=== PATIENT | male | born 1980 | race Caucasian/White ===

== ENCOUNTER 2019-08-29 15:46 | Inpatient (IN) | payer MEDICAID, SELFPAY ==
[~2019-08-29] VITALS: Ht 167.6 cm; Wt 70.7 kg
[~2019-08-29 15:46] MED LIST: NOCURR
[2019-08-29] MEDS ORDERED: INSU100I26 SQ (15:57)
[2019-08-29] MEDS ORDERED: INSU100V SQ (15:57)
[2019-08-29] MEDS ORDERED: IBUP-2071 PO (15:57)
[2019-08-29 16:02] LABS: GLUCOSE,POINT OF CARE 413 MG/DL (70-110)
[2019-08-29] MEDS ORDERED: 0.9% SODIUM CHLORIDE 10 ML SYRINGE IVP PRN ×2 (16:30→21:15)
[2019-08-29 16:44] LABS: EOSINOPHILS % (AUTO) 3.9 % (1.0-6.0); HEMATOCRIT 46.2 % (41-53); HEMOGLOBIN 15.5 g/dL (13.5-17.5); LYMPHOCYTES # (AUTO) 1.6 K/uL (1.0-4.8); LYMPHOCYTES % (AUTO) 19.3 % (22.0-44.0); MEAN CORPUSCULAR HEMOGLOBIN 28.9 pg (26.0-34.0); MEAN CORPUSCULAR HGB CONC 33.5 G/dL (31.0-37.0); MEAN CORPUSCULAR VOLUME 86 fL (80-100); MONOCYTES # (AUTO) 0.6 K/uL (0.1-1.0); MONOCYTES % (AUTO) 6.7 % (2.0-9.0); NEUTROPHILS # (AUTO) 5.7 K/uL (1.8-7.7); NEUTROPHILS % (AUTO) 69.1 % (40.0-70.0); PLATELET COUNT (AUTO) 412 K/uL (150-450); RED BLOOD CELL COUNT(AUTO) 5.36 MIL/uL (4.50-5.90); RED CELL DISTRIBUTION WIDTH 13.1 % (11.5-14.5)
[2019-08-29] MEDS ORDERED: SODIUM CHLORIDE 0.9% 1,000 ML IV ONE (16:45)
[2019-08-29 16:58] LABS: INR 0.9 (0.9-1.1); PROTHROMBIN TIME 9.2 SEC (9.4-11.6)
[2019-08-29 17:14] LABS: ANION GAP 9 mmol/L (8-16); CALCIUM, TOTAL 9.2 mg/dL (8.8-10.5); CARBON DIOXIDE 31 mmol/L (22-29); CHLORIDE 96 mmol/L (98-107); CREATININE 0.77 mg/dL (0.60-1.30); GLOMERULAR FILTR. RATE CALC > 60 mL/min (>60); GLUCOSE,RANDOM 393 mg/dL (70-110); SODIUM SERUM 136 mmol/L (136-145); UREA NITROGEN, BLOOD 20 mg/dL (7-18)
[2019-08-29 17:21] LABS: ALANINE AMINOTRANSFERASE 28 U/L (12-78); ALBUMIN 3.7 g/dL (3.4-5.0); ALKALINE PHOSPHATASE 156 U/L (46-116); ASPARTATE AMINOTRANSFERASE 14 U/L (15-37); BILIRUBIN,TOTAL 0.2 mg/dL (0.1-1.0); TOTAL PROTEIN, SERUM 8.8 g/dL (6.4-8.2)
[2019-08-29 17:27] LABS: LACTIC ACID 3.2 mmol/L (0.4-2.0)
[2019-08-29] MEDS ORDERED: ACETAMINOPHEN 325 MG TABLET PO PRN ×2 (18:30→21:15)
[2019-08-29] MEDS ORDERED: VANCOMYCIN HCL 1 GM/D5% WATER 200 ML IV ONE (18:30)
[2019-08-29] MEDS ORDERED: HYDROCODONE/ACETAMINOPHEN 5-325 MG TABLET PO PRN (18:30)
[2019-08-29] MEDS ORDERED: PIPERACILLIN/TAZO 3.375 GM/D5W 50 ML IV ONE (18:30)
[2019-08-29 20:57] VITALS: BP 122/66
[2019-08-29] MEDS ORDERED: MAGNESIUM SULFATE 4 GM/WATER 100 ML IV PRN (21:15)
[2019-08-29] MEDS ORDERED: ONDANSETRON HCL 4 MG/2 ML VIAL IVP PRN (21:15)
[2019-08-29] MEDS ORDERED: ZOLPIDEM TARTRATE 5 MG TABLET PO PRN (21:15)
[2019-08-29] MEDS ORDERED: MAGNESIUM OXIDE 400 MG TABLET PO PRN (21:15)
[2019-08-29] MEDS ORDERED: POTASSIUM CHLORIDE 20 MEQ ER TABLET PO PRN (21:15)
[2019-08-29] MEDS ORDERED: DEXTROSE 50%-WATER 25 GM/50 ML SYRINGE IVP PRN (21:15)
[2019-08-29] MEDS ORDERED: MAGNESIUM SULFATE 2 GM/WATER 50 ML IV PRN (21:15)
[2019-08-29] MEDS ORDERED: POTASSIUM CHL 10 MEQ/WATER 50 ML IV PRN (21:15)
[2019-08-29] MEDS ORDERED: SODIUM CHLORIDE 0.9% 500 ML IV ONE (21:33)
[2019-08-29] MEDS: SODIUM CHLORIDE 0.9% 1,000 ML IV SCH (22:21)
[2019-08-29] MEDS: INSULIN LISPRO 100 UNITS/ML SQ PRN (22:40)
[2019-08-29] MEDS: INSULIN GLARGINE,HUM.REC.ANLOG 100 UNITS/ML SQ SCH (22:41)
[2019-08-29] MEDS ORDERED: VANCOMYCIN HCL 500 MG in DEXTROSE 5%-WATER 100 ML IV ONE (23:30)
[2019-08-29 23:32] VITALS: BP 105/59
[2019-08-29] MEDS: HEPARIN SODIUM,PORCINE 5,000 UNITS/ML VIAL SQ SCH (23:33)
[2019-08-30 00:14] LABS: GLUCOMETER DEV NAME(LOC) 6N.2; GLUCOSE,POINT OF CARE 236 MG/DL (70-110)
[2019-08-30] MEDS: PIPERACILLIN/TAZO 3.375 GM/D5W 50 ML IV SCH ×4 (01:02→20:03)
[2019-08-30] MEDS ORDERED: PNEUMOCOCCAL VACCINE POLYVALENT 0.5 ML VIAL [PPSV23] IM ONE (03:30)
[2019-08-30 04:29] VITALS: BP 116/65
[2019-08-30 07:10] LABS: GLUCOMETER DEV NAME(LOC) 6N.2; GLUCOSE,POINT OF CARE 119 MG/DL (70-110)
[2019-08-30] MEDS: VANCOMYCIN HCL 1.25 GM in DEXTROSE 5%-WATER 250 ML IV SCH ×3 (07:13→22:42)
[2019-08-30 07:41] LABS: BASOPHILS % (AUTO) 0.5 % (0.0-2.0); EOSINOPHILS % (AUTO) 5.8 % (1.0-6.0); HEMATOCRIT 38.1 % (41-53); HEMOGLOBIN 12.8 g/dL (13.5-17.5); LYMPHOCYTES # (AUTO) 1.6 K/uL (1.0-4.8); LYMPHOCYTES % (AUTO) 21.2 % (22.0-44.0); MEAN CORPUSCULAR HEMOGLOBIN 28.7 pg (26.0-34.0); MEAN CORPUSCULAR HGB CONC 33.7 G/dL (31.0-37.0); MEAN CORPUSCULAR VOLUME 85 fL (80-100); MONOCYTES # (AUTO) 0.8 K/uL (0.1-1.0); MONOCYTES % (AUTO) 9.7 % (2.0-9.0); NEUTROPHILS # (AUTO) 4.9 K/uL (1.8-7.7); NEUTROPHILS % (AUTO) 62.8 % (40.0-70.0); PLATELET COUNT (AUTO) 337 K/uL (150-450); RED BLOOD CELL COUNT(AUTO) 4.48 MIL/uL (4.50-5.90); RED CELL DISTRIBUTION WIDTH 13.1 % (11.5-14.5)
[2019-08-30 07:48] LABS: HEMOGLOBIN A1C 12.2 % (4.5-6.2)
[2019-08-30 08:09] LABS: ALANINE AMINOTRANSFERASE 20 U/L (12-78); ALBUMIN 2.6 g/dL (3.4-5.0); ALKALINE PHOSPHATASE 88 U/L (46-116); ANION GAP 7 mmol/L (8-16); ASPARTATE AMINOTRANSFERASE 12 U/L (15-37); BILIRUBIN,TOTAL 0.2 mg/dL (0.1-1.0); CALCIUM, TOTAL 8.3 mg/dL (8.8-10.5); CARBON DIOXIDE 29 mmol/L (22-29); CHLORIDE 106 mmol/L (98-107); CREATINE KINASE, TOTAL ONLY 23 U/L (39-308); GLOMERULAR FILTR. RATE CALC > 60 mL/min (>60); GLUCOSE,RANDOM 106 mg/dL (70-110); POTASSIUM 3.8 mmol/L (3.5-5.1); SODIUM SERUM 142 mmol/L (136-145); TOTAL PROTEIN, SERUM 6.3 g/dL (6.4-8.2); UREA NITROGEN, BLOOD 15 mg/dL (7-18)
[2019-08-30 08:51] VITALS: BP 103/67
[2019-08-30] MEDS: PANTOPRAZOLE SODIUM 40 MG DR TABLET PO SCH (09:37)
[2019-08-30] MEDS: HEPARIN SODIUM,PORCINE 5,000 UNITS/ML VIAL SQ SCH ×3 (09:38→23:18)
[2019-08-30] MEDS: DOCUSATE SODIUM 100 MG CAPSULE PO SCH ×2 (09:38→21:00)
[2019-08-30 11:30] VITALS: BP 105/66
[2019-08-30] MEDS: SODIUM CHLORIDE 0.9% 1,000 ML IV SCH (13:13)
[2019-08-30 16:08] VITALS: BP 98/66
[2019-08-30 18:06] LABS: GLUCOMETER DEV NAME(LOC) 6N.2; GLUCOSE,POINT OF CARE 315 MG/DL (70-110)
[2019-08-30] MEDS: INSULIN LISPRO 100 UNITS/ML SQ PRN (18:37)
[2019-08-30 19:30] VITALS: BP 135/73
[2019-08-30] MEDS: INSULIN GLARGINE,HUM.REC.ANLOG 100 UNITS/ML SQ SCH (21:16)
[2019-08-30 23:12] VITALS: BP 101/72
[2019-08-31] MEDS: IBUPROFEN 800 MG TABLET PO PRN (00:45)
[2019-08-31] MEDS: PIPERACILLIN/TAZO 3.375 GM/D5W 50 ML IV SCH ×4 (01:53→19:43)
[2019-08-31 04:35] VITALS: BP 96/66
[2019-08-31] MEDS: SODIUM CHLORIDE 0.9% 1,000 ML IV SCH ×2 (06:00→16:09)
[2019-08-31] MEDS: VANCOMYCIN HCL 1.25 GM in DEXTROSE 5%-WATER 250 ML IV SCH (06:51)
[2019-08-31 07:28] LABS: ANION GAP 2 mmol/L (8-16); CALCIUM, TOTAL 8.9 mg/dL (8.8-10.5); CARBON DIOXIDE 34 mmol/L (22-29); CHLORIDE 103 mmol/L (98-107); CREATININE 0.93 mg/dL (0.60-1.30); GLOMERULAR FILTR. RATE CALC > 60 mL/min (>60); GLUCOSE,RANDOM 102 mg/dL (70-110); POTASSIUM 3.6 mmol/L (3.5-5.1); SODIUM SERUM 139 mmol/L (136-145); UREA NITROGEN, BLOOD 12 mg/dL (7-18); VANCOMYCIN,RANDOM 20.1 mcg/mL (25.0-50.0)
[2019-08-31 07:38] VITALS: BP 90/60
[2019-08-31] MEDS: HEPARIN SODIUM,PORCINE 5,000 UNITS/ML VIAL SQ SCH ×3 (08:00→23:14)
[2019-08-31 09:42] LABS: GLUCOMETER DEV NAME(LOC) 6N.2; GLUCOSE,POINT OF CARE 171 MG/DL (70-110)
[2019-08-31 09:42] LABS: GLUCOMETER DEV NAME(LOC) 6N.2; GLUCOSE,POINT OF CARE 110 MG/DL (70-110)
[2019-08-31] MEDS: PANTOPRAZOLE SODIUM 40 MG DR TABLET PO SCH (09:55)
[2019-08-31] MEDS: DOCUSATE SODIUM 100 MG CAPSULE PO SCH ×2 (09:55→21:00)
[2019-08-31 11:36] VITALS: BP 102/74
[2019-08-31] MEDS: VANCOMYCIN HCL 1 GM/D5% WATER 200 ML IV SCH ×2 (15:00→23:13)
[2019-08-31 15:43] LABS: GLUCOMETER DEV NAME(LOC) 6N.2; GLUCOSE,POINT OF CARE 232 MG/DL (70-110)
[2019-08-31 15:52] VITALS: BP 103/69
[2019-08-31 18:05] LABS: GLUCOMETER DEV NAME(LOC) 6N.2; GLUCOSE,POINT OF CARE 248 MG/DL (70-110)
[2019-08-31] MEDS: INSULIN LISPRO 100 UNITS/ML SQ PRN (18:36)
[2019-08-31 19:51] VITALS: BP 112/68
[2019-08-31] MEDS: INSULIN GLARGINE,HUM.REC.ANLOG 100 UNITS/ML SQ SCH (21:08)
[2019-08-31 22:35] LABS: GLUCOMETER DEV NAME(LOC) 6N.2; GLUCOSE,POINT OF CARE 263 MG/DL (70-110)
[2019-08-31 23:41] VITALS: BP 106/63
[2019-09-01] MEDS: PIPERACILLIN/TAZO 3.375 GM/D5W 50 ML IV SCH ×4 (01:41→18:08)
[2019-09-01 04:14] VITALS: BP 103/65
[2019-09-01] MEDS: SODIUM CHLORIDE 0.9% 1,000 ML IV SCH (06:27)
[2019-09-01] MEDS ORDERED: LIDOCAINE/PF 1% 30 ML VIAL ONE (06:47)
[2019-09-01] MEDS ORDERED: BACITRACIN 50,000 UNITS/VIAL ONE (06:48)
[2019-09-01] MEDS ORDERED: BUPIVACAINE HCL/PF 0.5% 30 ML VIAL ONE (06:48)
[2019-09-01] MEDS ORDERED: SODIUM CL IRRIG SOLN BAG 0 ML IRRIG ONE (06:48)
[2019-09-01] MEDS ORDERED: FentaNYL CITRATE-PF 100 MCG/2 ML VIAL IVP PRN (07:15)
[2019-09-01] MEDS ORDERED: MEPERIDINE-PF 25 MG/ML VIAL IVP PRN (07:15)
[2019-09-01] MEDS ORDERED: HYDROmorphone 2 MG/ML SYRINGE IVP PRN (07:15)
[2019-09-01] MEDS ORDERED: RINGERS SOLUTION,LACTATED 1,000 ML IV ONE (07:16)
[2019-09-01] MEDS ORDERED: SODIUM CHLORIDE 0.9% 10 ML ONE (07:19)
[2019-09-01 07:25] LABS: GLUCOMETER DEV NAME(LOC) 6N.2; GLUCOSE,POINT OF CARE 209 MG/DL (70-110)
[2019-09-01 07:33] LABS: BASOPHILS % (AUTO) 0.6 % (0.0-2.0); EOSINOPHILS % (AUTO) 4.7 % (1.0-6.0); HEMATOCRIT 39.3 % (41-53); HEMOGLOBIN 13.2 g/dL (13.5-17.5); LYMPHOCYTES # (AUTO) 1.6 K/uL (1.0-4.8); LYMPHOCYTES % (AUTO) 23.5 % (22.0-44.0); MEAN CORPUSCULAR HEMOGLOBIN 28.7 pg (26.0-34.0); MEAN CORPUSCULAR HGB CONC 33.6 G/dL (31.0-37.0); MEAN CORPUSCULAR VOLUME 85 fL (80-100); MONOCYTES # (AUTO) 0.7 K/uL (0.1-1.0); MONOCYTES % (AUTO) 10.1 % (2.0-9.0); NEUTROPHILS # (AUTO) 4.1 K/uL (1.8-7.7); NEUTROPHILS % (AUTO) 61.1 % (40.0-70.0); PLATELET COUNT (AUTO) 367 K/uL (150-450); RED CELL DISTRIBUTION WIDTH 13.2 % (11.5-14.5)
[2019-09-01 07:42] LABS: ANION GAP 3 mmol/L (8-16); CALCIUM, TOTAL 8.6 mg/dL (8.8-10.5); CARBON DIOXIDE 36 mmol/L (22-29); CHLORIDE 100 mmol/L (98-107); CREATININE 0.71 mg/dL (0.60-1.30); GLOMERULAR FILTR. RATE CALC > 60 mL/min (>60); GLUCOSE,RANDOM 215 mg/dL (70-110); POTASSIUM 4.2 mmol/L (3.5-5.1); SODIUM SERUM 139 mmol/L (136-145); UREA NITROGEN, BLOOD 15 mg/dL (7-18)
[2019-09-01] MEDS: OXYGEN THERAPY IH SCH ×2 (08:00→20:00)
[2019-09-01] MEDS ORDERED: HYDROmorphone 2 MG/ML SYRINGE ONE (08:32)
[2019-09-01] MEDS: VANCOMYCIN HCL 1 GM/D5% WATER 200 ML IV SCH ×3 (09:11→23:10)
[2019-09-01] MEDS: DOCUSATE SODIUM 100 MG CAPSULE PO SCH ×2 (09:12→19:53)
[2019-09-01] MEDS: HEPARIN SODIUM,PORCINE 5,000 UNITS/ML VIAL SQ SCH ×2 (09:12→15:23)
[2019-09-01] MEDS: IBUPROFEN 800 MG TABLET PO PRN ×2 (09:13→19:53)
[2019-09-01] MEDS: PANTOPRAZOLE SODIUM 40 MG DR TABLET PO SCH (09:13)
[2019-09-01] MEDS: ACETAMINOPHEN/CODEINE 300-30 MG TABLET PO PRN ×2 (11:07→15:29)
[2019-09-01 11:19] VITALS: BP 109/61
[2019-09-01] MEDS ORDERED: FentaNYL CITRATE-PF 100 MCG/2 ML VIAL IVP ONE (12:00)
[2019-09-01] MEDS ORDERED: ONDANSETRON HCL 4 MG/2 ML VIAL IVP ONE (12:00)
[2019-09-01] MEDS ORDERED: LIDOCAINE/PF 2% 5 ML SYRINGE IVP ONE (12:00)
[2019-09-01] MEDS ORDERED: MIDAZOLAM HCL 2 MG/2 ML VIAL IVP ONE (12:00)
[2019-09-01] MEDS: INSULIN LISPRO 100 UNITS/ML SQ PRN ×3 (12:01→20:48)
[2019-09-01 15:55] LABS: GLUCOMETER DEV NAME(LOC) 6N.2; GLUCOSE,POINT OF CARE 329 MG/DL (70-110)
[2019-09-01 16:32] VITALS: BP 99/65
[2019-09-01 19:40] VITALS: BP 101/69
[2019-09-01] MEDS: INSULIN GLARGINE,HUM.REC.ANLOG 100 UNITS/ML SQ SCH (20:47)
[2019-09-01 22:55] LABS: GLUCOMETER DEV NAME(LOC) 6N.2; GLUCOSE,POINT OF CARE 191 MG/DL (70-110)
[2019-09-01 22:55] LABS: GLUCOMETER DEV NAME(LOC) 6N.2; GLUCOSE,POINT OF CARE 220 MG/DL (70-110)
[2019-09-01 23:40] VITALS: BP 99/68
[2019-09-02] MEDS: PIPERACILLIN/TAZO 3.375 GM/D5W 50 ML IV SCH ×4 (01:09→18:35)
[2019-09-02 03:20] VITALS: BP 91/61
[2019-09-02] MEDS: VANCOMYCIN HCL 1 GM/D5% WATER 200 ML IV SCH ×3 (07:00→22:47)
[2019-09-02 07:17] LABS: GLUCOMETER DEV NAME(LOC) 6N.2; GLUCOSE,POINT OF CARE 73 MG/DL (70-110)
[2019-09-02 07:42] VITALS: BP 101/62
[2019-09-02] MEDS: SODIUM CHLORIDE 0.9% 1,000 ML IV SCH (07:50)
[2019-09-02] MEDS: OXYGEN THERAPY IH SCH ×2 (07:50→20:00)
[2019-09-02] MEDS: PANTOPRAZOLE SODIUM 40 MG DR TABLET PO SCH (07:55)
[2019-09-02] MEDS: ACETAMINOPHEN/CODEINE 300-30 MG TABLET PO PRN ×2 (07:55→13:15)
[2019-09-02] MEDS: HEPARIN SODIUM,PORCINE 5,000 UNITS/ML VIAL SQ SCH ×4 (07:56→23:48)
[2019-09-02] MEDS: DOCUSATE SODIUM 100 MG CAPSULE PO SCH ×2 (07:56→21:08)
[2019-09-02 08:04] LABS: BASOPHILS % (AUTO) 0.6 % (0.0-2.0); EOSINOPHILS % (AUTO) 5.7 % (1.0-6.0); HEMATOCRIT 37.5 % (41-53); HEMOGLOBIN 12.7 g/dL (13.5-17.5); LYMPHOCYTES # (AUTO) 2.2 K/uL (1.0-4.8); LYMPHOCYTES % (AUTO) 30.3 % (22.0-44.0); MEAN CORPUSCULAR HEMOGLOBIN 28.9 pg (26.0-34.0); MEAN CORPUSCULAR HGB CONC 33.8 G/dL (31.0-37.0); MEAN CORPUSCULAR VOLUME 86 fL (80-100); MONOCYTES # (AUTO) 0.7 K/uL (0.1-1.0); MONOCYTES % (AUTO) 10.2 % (2.0-9.0); NEUTROPHILS # (AUTO) 3.9 K/uL (1.8-7.7); NEUTROPHILS % (AUTO) 53.2 % (40.0-70.0); PLATELET COUNT (AUTO) 352 K/uL (150-450); RED BLOOD CELL COUNT(AUTO) 4.38 MIL/uL (4.50-5.90)
[2019-09-02 08:12] LABS: ANION GAP 5 mmol/L (8-16); CALCIUM, TOTAL 8.6 mg/dL (8.8-10.5); CARBON DIOXIDE 31 mmol/L (22-29); CHLORIDE 105 mmol/L (98-107); CREATININE 0.75 mg/dL (0.60-1.30); GLOMERULAR FILTR. RATE CALC > 60 mL/min (>60); GLUCOSE,RANDOM 78 mg/dL (70-110); POTASSIUM 3.8 mmol/L (3.5-5.1); SODIUM SERUM 141 mmol/L (136-145); UREA NITROGEN, BLOOD 18 mg/dL (7-18); VANCOMYCIN,RANDOM 18.4 mcg/mL (25.0-50.0)
[2019-09-02 11:27] VITALS: BP 102/71
[2019-09-02] MEDS: INSULIN LISPRO 100 UNITS/ML SQ PRN ×3 (11:44→21:07)
[2019-09-02] MEDS ORDERED: SODIUM CHLORIDE 0.9% 500 ML IV ONE (13:17)
[2019-09-02 14:43] LABS: GLUCOMETER DEV NAME(LOC) 6N.2; GLUCOSE,POINT OF CARE 209 MG/DL (70-110)
[2019-09-02 15:47] VITALS: BP 108/58
[2019-09-02 17:14] LABS: GLUCOMETER DEV NAME(LOC) 6N.2; GLUCOSE,POINT OF CARE 223 MG/DL (70-110)
[2019-09-02] MEDS: MetFORMIN HCL 500 MG TABLET PO SCH (17:47)
[2019-09-02 19:40] VITALS: BP 110/64
[2019-09-02] MEDS: INSULIN GLARGINE,HUM.REC.ANLOG 100 UNITS/ML SQ SCH (21:06)
[2019-09-02] MEDS: IBUPROFEN 800 MG TABLET PO PRN (22:39)
[2019-09-02 23:45] VITALS: BP 94/65
[2019-09-03] MEDS: PIPERACILLIN/TAZO 3.375 GM/D5W 50 ML IV SCH ×3 (01:03→13:32)
[2019-09-03 03:32] LABS: GLUCOMETER DEV NAME(LOC) 6N.2; GLUCOSE,POINT OF CARE 246 MG/DL (70-110)
[2019-09-03 03:45] VITALS: BP 93/66
[2019-09-03] MEDS: INSULIN LISPRO 100 UNITS/ML SQ PRN (06:29)
[2019-09-03] MEDS: VANCOMYCIN HCL 1 GM/D5% WATER 200 ML IV SCH ×2 (06:58→15:50)
[2019-09-03 07:11] LABS: ANION GAP 4 mmol/L (8-16); CALCIUM, TOTAL 8.8 mg/dL (8.8-10.5); CARBON DIOXIDE 33 mmol/L (22-29); CHLORIDE 102 mmol/L (98-107); CREATININE 0.66 mg/dL (0.60-1.30); GLOMERULAR FILTR. RATE CALC > 60 mL/min (>60); GLUCOSE,RANDOM 146 mg/dL (70-110); SODIUM SERUM 139 mmol/L (136-145); UREA NITROGEN, BLOOD 21 mg/dL (7-18)
[2019-09-03 07:33] VITALS: BP 112/67
[2019-09-03] MEDS: MetFORMIN HCL 500 MG TABLET PO SCH ×2 (07:55→16:59)
[2019-09-03 07:57] LABS: GLUCOMETER DEV NAME(LOC) 6N.2; GLUCOSE,POINT OF CARE 215 MG/DL (70-110)
[2019-09-03] MEDS: OXYGEN THERAPY IH SCH (08:00)
[2019-09-03] MEDS: DOCUSATE SODIUM 100 MG CAPSULE PO SCH (08:02)
[2019-09-03] MEDS: PANTOPRAZOLE SODIUM 40 MG DR TABLET PO SCH (08:02)
[2019-09-03] MEDS: ACETAMINOPHEN/CODEINE 300-30 MG TABLET PO PRN (08:03)
[2019-09-03] MEDS: HEPARIN SODIUM,PORCINE 5,000 UNITS/ML VIAL SQ SCH ×2 (08:03→15:50)
[2019-09-03] MEDS ORDERED: MULTIVITAMINS WITH MINERALS, THERAPEUTIC TABLET PO SCH (09:00)
[2019-09-03 11:10] LABS: GLUCOMETER DEV NAME(LOC) 6N.2; GLUCOSE,POINT OF CARE 127 MG/DL (70-110)
[2019-09-03 11:19] VITALS: BP 110/76
[2019-09-03] MEDS ORDERED: METF500T PO (12:23)
[2019-09-03] MEDS ORDERED: CLIN300C3 PO (12:23)
[2019-09-03] MEDS ORDERED: CEPH-582 PO (12:23)
[2019-09-03] MEDS ORDERED: SODIUM CHLORIDE 0.9% IRRIG BTL 1,000 ML IRRIG ONE (15:29)
== END 2019-09-03 18:00 | disposition home or self-care (01) | DRG 380 ==
LOC: EMS 15:47 → 6N 18:48
PROVIDERS: ADMIT Internal Medicine; ATTEND Internal Medicine
PROC: 0JBR0ZZ Excision of Left Foot Subcutaneous Tissue and Fascia, Open Approach (ICD-10-PCS; principal; 2019-09-01 07:30)
DX: E11.621 Type 2 diabetes mellitus with foot ulcer (principal); L97.529 Non-pressure chronic ulcer of other part of left foot with unspecified severity; E87.2 Acidosis; L02.416 Cutaneous abscess of left lower limb; L03.116 Cellulitis of left lower limb; F14.90 Cocaine use, unspecified, uncomplicated; F12.90 Cannabis use, unspecified, uncomplicated; F15.90 Other stimulant use, unspecified, uncomplicated; F11.90 Opioid use, unspecified, uncomplicated; B95.8 Unspecified staphylococcus as the cause of diseases classified elsewhere; Z72.0 Tobacco use; Z59.0 Homelessness; Z91.14 Patient's other noncompliance with medication regimen; Z72.89 Other problems related to lifestyle
CPT/HCPCS: 73700; 83036; 83605; 83735; 84145; 87040; 87070; 87081; 87205; 88304; 93005; J1170; J1644; J1815; J2250; J2405; J2543; J3010; J3370; J3490; J7030; J7040; J7060; J7120